=== PATIENT | male | born 1955 | race Caucasian/White ===

== ENCOUNTER 2017-08-24 18:03 | Emergency (ER) | payer OTHER ==
[~2017-08-24] VITALS: Ht 167.6 cm; Wt 74.4 kg
[2017-08-24 18:18] VITALS: BP 151/92
[2017-08-24] MEDS ORDERED: KETOROLAC 60 MG/2 ML VIAL IM ONE (18:40)
--- NOTE | 2017-08-24 19:08 | NUR ---
Patient taken to CT scan via gurney by [employer].
--- NOTE | 2017-08-24 19:15 | NUR ---
REPORT GIVEN FROM CARMELITA VENEGAS. PT AT CT AT THIS TIME.
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
--- NOTE | 2017-08-24 20:58 | NUR ---
Dr. Marquis re-evaluating patient at bedside.
[2017-08-24 21:26] VITALS: BP 148/81
== END 2017-08-24 21:26 | disposition home or self-care (01) ==
LOC: MED 18:03
DX: S60.221A Contusion of right hand, initial encounter (principal); S30.1XXA Contusion of abdominal wall, initial encounter; S50.311A Abrasion of right elbow, initial encounter; V23.4XXA Motorcycle driver injured in collision with car, pick-up truck or van in traffic accident, initial encounter; Y93.55 Activity, bike riding; Y99.8 Other external cause status; Y92.410 Unspecified street and highway as the place of occurrence of the external cause
CPT/HCPCS: 72192; 73110; 96372; 99284; J1885

== ENCOUNTER 2021-10-24 17:40 | Emergency (ER) | payer OTHER, MEDICAID ==
[~2021-10-24] VITALS: Ht 175.3 cm; Wt 79.4 kg
--- NOTE | 2021-10-24 17:50 | NUR ---
66 y/o male right right sided facial droop since yesterday, pt last known well was 1500 10/23/21. pt reports facial weakness and difficulty speaking starting 6 pm last night. pt denies fever, chills, nausea or vomiting, chest pain or sob. pt is a&ox4, gambian speaking, ambulates with assistance on right side due to deficits. lung sounds clear, heart sounds regular and even. pmh: dm2, htn nka med: denies
--- NOTE | 2021-10-24 17:55 | NUR ---
niraj swabbed at this time
[2021-10-24 18:01] VITALS: BP 176/99
--- NOTE | 2021-10-24 18:19 | NUR ---
pt taken to imaging via wheelchair at this time
[2021-10-24 18:22] LABS: BASOPHILS # (AUTO) 0.1 K/uL (0.00-0.22); BASOPHILS % (AUTO) 0.9 % (0.0-2.0); EOSINOPHILS # (AUTO) 0.1 K/uL (0-0.4); EOSINOPHILS % (AUTO) 1.9 % (0.0-4.0); HEMATOCRIT 43.5 % (36-52); HEMOGLOBIN 14.7 g/dL (12.0-18.0); LYMPHOCYTES # (AUTO) 2.4 K/uL (2.0-11.5); LYMPHOCYTES % (AUTO) 36.7 % (20.5-51.1); MEAN CORPUSCULAR HEMOGLOBIN 30 pg (27-31); MEAN CORPUSCULAR HGB CONC 34 g/dL (33-37); MEAN CORPUSCULAR VOLUME 87.8 fL (80-94); MONOCYTES # (AUTO) 0.5 K/uL (0.8-1.0); MONOCYTES % (AUTO) 8.2 % (1.7-9.3); NEUTROPHILS # (AUTO) 3.5 K/uL (1.8-7.7); NEUTROPHILS % (AUTO) 52.3 % (42.2-75.2); PLATELET COUNT (AUTO) 252 K/uL (140-450); RED BLOOD CELL COUNT(AUTO) 4.95 MIL/uL (4.20-6.10); RED CELL DISTRIBUTION WIDTH 13.6 % (11.6-13.7); WHITE BLOOD COUNT (AUTO) 6.6 K/uL (4.8-10.8)
[2021-10-24] MEDS ORDERED: SIMV-371 PO (18:40)
[2021-10-24] MEDS ORDERED: AMLO10TA PO (18:40)
[2021-10-24] MEDS ORDERED: RA VITAMIN D3 PO (18:40)
[2021-10-24] MEDS ORDERED: LOSA100T1 PO (18:40)
[2021-10-24] MEDS ORDERED: ESCI10TA PO (18:40)
[2021-10-24] MEDS ORDERED: METF-346 PO (18:40)
[2021-10-24 18:58] LABS: ANION GAP 15.7 (8-16); CARBON DIOXIDE 26.9 mmol/L (21-32); POTASSIUM 3.6 mmol/L (3.5-5.1); TOTAL BILIRUBIN 0.4 mg/dL (0.0-1.0)
--- NOTE | 2021-10-24 19:36 | NUR ---
Pt report given to Nakita RN. Transfer of care at this time.
--- NOTE | 2021-10-24 20:07 | NUR ---
patient's daughter Justine called about updates.
--- NOTE | 2021-10-24 20:25 | NUR ---
spoke with nicole the case management assistant about pt condition
--- NOTE | 2021-10-24 20:58 | NUR ---
PT C/O LOW BLOOD SUGAR. HAS SHAKINESS, WEAKNESS, & DIAPHORETIC. BG AT 46. PROVIDED CHOCOLATE PUDDING AND APPLE JUICE. CHARLOTTE ROGERS MADE AWARE.
--- NOTE | 2021-10-24 21:40 | NUR ---
PT REPORTS FEELING BETTER AFTER RECEIVING FOOD- NO LONGER HAVING SHAKINESS, WEAKNESS, AND BEING DIAPHORETIC. CHECKED BG AT 125
--- NOTE | 2021-10-25 00:35 | NUR ---
[facility] arrived. [facility] crew at bedside.
--- NOTE | 2021-10-25 00:36 | NUR ---
Patient to be transferred to [facility]. Is being transferred due to Higher level of Care. Receiving facility has accepting physician and available space. ER physician has signed transfer form. Patient or responsible green party has agreed to transfer and signed form. Patient belongings inventoried and will be sent with patient. Copy of nursing notes, lab reports, EKG, Physicians Orders and X-rays to be sent with patient. Report called to Luisa VENEGAS at receiving facility. [facility] ambulance service has been called for transfer.
[2021-10-25 00:54] VITALS: BP 151/73
--- NOTE | 2021-10-25 00:54 | NUR ---
[facility] transferred patient to [facility]
[2021-10-25] MEDS ORDERED: ASPIRIN 325 MG TABEC PO SCH (09:00)
== END 2021-10-25 00:54 | disposition short-term general hospital (02) ==
LOC: MED 17:40
DX: I63.9 Cerebral infarction, unspecified (principal); Z20.822 Contact with and (suspected) exposure to COVID-19; R29.810 Facial weakness; E11.9 Type 2 diabetes mellitus without complications; I10 Essential (primary) hypertension; Z79.84 Long term (current) use of oral hypoglycemic drugs; Z79.899 Other long term (current) drug therapy
CPT/HCPCS: 36415; 70450; 71045; 80053; 83880; 84484; 85025; 93005; 99284